=== PATIENT | male | born 2000 | race Two or more races ===

== ENCOUNTER 2024-07-28 14:20 | Emergency (ER) | payer SELFPAY ==
[2024-07-28 14:34] VITALS: BP 114/75; PULSE 97; RESP 16; TEMP 36.3; O2SAT 97; BMI 40.3
--- NOTE | 2024-07-28 14:36 | ED.GENADULT ---
HPI - General Adult General Chief complaint: Dental/Oral Stated complaint: dental pain Time Seen by Provider: 07/28/24 14:35 Source: patient, RN notes reviewed and old records reviewed Mode of arrival: ambulatory Limitations: no limitations History of Present Illness ED Provider: Carlos Manuel CLINTON narrative: 24-year-old male presents for evaluation of left facial pain. Patient believes he has a dental infection. He has a remote history of a left molar fracture He reports he has had increasing pain today over the last 4 days in his worse with chewing. Denies any significant facial swelling Denies any fevers, chills Related Data Previous Rx's ?Medication ?Instructions ?Recorded amoxicillin 500 mg tablet 500 mg PO Q8H #21 tabs 07/28/24 Allergies Allergy/AdvReac Type Severity Reaction Status Date / Time No Known Allergies Allergy Verified 07/28/24 14:37 Review of Systems Constitutional: Constitutional: Denies body ache(s), Denies chills and Denies fever(s) ENT: Denies vertigo Cardiovascular: Cardiovascular: Denies chest pain and Denies dyspnea Respiratory: Respiratory: Denies cough and Denies dyspnea Gastrointestinal: Gastrointestinal: Denies abdominal pain Musculoskeletal: Musculoskeletal: Denies back pain Integumentary/Breasts: Skin/Breast: Denies rash Neurologic: Denies vertigo PMFSH Social History Social History Advance Directives: No Advance Directives Information Provided: Yes Do you have a plan to hurt others: No Plan Physical Exam ED Vital Signs: Vital Signs - 24 hr 07/28/24 14:34 Temperature 97.4 F Pulse Rate 97 Respiratory Rate 16 Blood Pressure 114/75 Pulse Oximetry 97 Oxygen Delivery Method Room Air BMI result Body Mass Index 40.3 Const General: healthy appearing, comfortable, no acute distress, alert and awake Nutritional Appearance: well nourished Orientation/consciousness: patient oriented x3 HENMT Other: Fracture of left lower molar. There is surrounding gingival edema, no obvious drainable abscess. Head: Yes normocephalic and Yes atraumatic Eyes Eyelids: Yes eyelids normal Conjunctivae: conjunctivae normal Sclerae: sclerae normal Corneas: corneas normal Pupils: Equal, round and reactive pupils present EOM: EOMs intact bilaterally Neck Neck: Yes full ROM Resp Effort & Inspection: normal respiratory effort, able to speak in complete sentences and not labored Skin General skin exam: elasticity normal Neuro General: patient oriented x3 Cranial nerves: Yes Equal, round and reactive pupils present and Yes Bilaterally intact EOM present Cognition (Neuro): normal cognition Extrem Other: Moving all extremities well without any obvious deformities Medical Decision Making Medical Decision Making MDM Narrative: 24-year-old male presents for evaluation of left facial pain and dental pain. He has a remote history of dental fracture. It appears to be having developing infection with no drainable abscess. We will treat with amoxicillin he will follow up with his dentist for definitive treatment. Differential Diagnosis Differential Diagnoses: The differential diagnosis associated with the presentation includes Dental caries Dental abscess Gingivitis Atypical facial pain Discharge Plan Discharge Clinical Impression: Atypical face pain Patient Disposition: Home, Self-Care Instructions: Acute Dental Trauma (ED), Atypical Facial Pain (ED) Additional Instructions: Take amoxicillin 3 times daily for the next week. You may also apply warm compresses to the painful area. It is important that you follow up with a dentist when able for definitive treatment Prescriptions: New amoxicillin 500 mg tablet 500 mg PO Q8H Qty: 21 0RF Print Language: Bhutanese
== END 2024-07-28 14:56 | disposition home or self-care (01) ==
LOC: HO.ED 14:42
PROVIDERS: Emergency Provider Emergency Medicine
DX: R51.9 Headache, unspecified (principal); K08.89 Other specified disorders of teeth and supporting structures
CPT/HCPCS: 99281; 99283